=== PATIENT | female | born 1945 | race Caucasian/White ===

== ENCOUNTER 2021-06-25 14:52 | Inpatient (IN) ==
[2021-06-25] MEDS ORDERED: MORPHINE 2 MG/1 ML SYRINGE IV STA (16:27)
[2021-06-25] MEDS ORDERED: ASPIRIN 325 MG TABLET PO STA (16:27)
[2021-06-25] MEDS ORDERED: ONDANSETRON 4 MG/2 ML VIAL IV STA (16:27)
[2021-06-25] MEDS ORDERED: NITROGLYCERIN 2% OINT 1 INCH/GM PACK TOP STA (16:27)
[2021-06-25 16:40] LABS: Basophils % 0.6 % (0.0-0.8); Eosinophils # 0.1 10*3/uL (0.0-0.87); Eosinophils % 1.1 % (0.00-10.9); Hematocrit 46.4 VOL% (35.7-47.0); Hemoglobin 14.6 GM/DL (12.0-16.0); Immature Granulocytes % 0.2 %; Immature Granulocytes Absolute 0.01 #; Lymphocytes % 15.3 % (21.3-54.2); Mean Corpuscular HGB Conc 31.5 GM/DL (32-36); Mean Platelet Volume 10.4 FL (9.6-12.0); Monocytes % 5.3 % (1.7-12.7); Neutrophils % 77.5 % (38.7-73.9); Platelet Count 258 T/CUMM (130-400); Red Cell Distribution Width 13.2 % (9.3-17.3); White Blood Count 6.2 T/CUMM (4-12)
[2021-06-25 16:54] LABS: Alanine Aminotransferase 16 U/L (13-56); Albumin 3.6 G/DL (3.4-5.0); Alkaline Phosphatase 77 U/L (45-117); Aspartate Amino Transferase 20 U/L (0-37); Bilirubin,Total < 0.39 MG/DL (0.20-1.00); Blood Urea Nitrogen 17 MG/DL (7-18); Calcium 9.5 MG/DL (8.5-10.1); Carbon Dioxide 29 MMOL/L (21-32); Estimated Glom Filtration Rate 55 ML/MIN; Glucose 121 MG/DL (74-106); Potassium 4.5 MMOL/L (3.5-5.1); Sodium 136 MMOL/L (136-145)
[2021-06-25] MEDS ORDERED: ONDANSETRON 4 MG/2 ML VIAL IV PRN (17:47)
[2021-06-25] MEDS ORDERED: ZALEPLON 5 MG CAPSULE PO PRN (17:47)
[2021-06-25] MEDS ORDERED: DOCUSATE SODIUM 100 MG CAPSULE PO PRN (17:47)
[2021-06-25] MEDS ORDERED: NITROGLYCERIN 2% OINT 1 INCH/GM PACK TOP SCH (18:00)
[2021-06-25] MEDS ORDERED: ACETAMINOPHEN/CODEINE 300-30 MG TABLET PO PRN (18:41)
[2021-06-25] MEDS ORDERED: ENOXAPARIN 40 MG/0.4 ML SYRINGE SUBCUT SCH (20:00)
[2021-06-25] MEDS: ENOXAPARIN 80 MG/0.8 ML SYRINGE SUBCUT SCH (20:49)
[2021-06-25] MEDS: MORPHINE 2 MG/1 ML SYRINGE IV PRN (21:46)
[2021-06-26] MEDS: NITROGLYCERIN 2% OINT 1 INCH/GM PACK TOP SCH ×4 (00:31→17:22)
[2021-06-26] MEDS: ENOXAPARIN 80 MG/0.8 ML SYRINGE SUBCUT SCH ×2 (06:11→18:22)
[2021-06-26 06:12] LABS: Calcium 9.1 MG/DL (8.5-10.1); Osmolality,Calculated 276.7 MOS/KG (273-304); Potassium 4.2 MMOL/L (3.5-5.1); Risk Ratio 3.26; VLDL Cholesterol 25.4 MG/DL
[2021-06-26] MEDS ORDERED: MAGNESIUM SULF RIDER 2 GM/50 ML PREMIX IV ONE (07:51)
[2021-06-26] MEDS: PANTOPRAZOLE 40 MG TABLET PO SCH (08:23)
[2021-06-26] MEDS: MORPHINE 2 MG/1 ML SYRINGE IV PRN ×2 (08:26→13:25)
[2021-06-26] MEDS ORDERED: DIAZEPAM 5 MG TABLET PO ONE (09:47)
[2021-06-26] MEDS ORDERED: diphenhydrAMINE CAP 25 MG CAPSULE PO ONE (09:47)
[2021-06-26] MEDS: SODIUM CHLORIDE 0.45% 1,000 ML IV SCH ×2 (10:27→17:23)
[2021-06-26] MEDS: ASPIRIN EC 81 MG TABLET PO SCH (10:27)
[2021-06-26] MEDS ORDERED: LIDOCAINE 1% 20 ML VIAL ONE (10:51)
[2021-06-26] MEDS ORDERED: NITROGLYCERIN DRIP 50 MG/250 ML BOTTLE IV ONE (11:08)
[2021-06-26] MEDS ORDERED: VERAPAMIL 5 MG/2 ML VIAL ONE (11:08)
[2021-06-26] MEDS ORDERED: MIDAZOLAM 2 MG/2 ML VIAL ONE (11:29)
[2021-06-26] MEDS ORDERED: fentaNYL 100 MCG/2 ML VIAL ONE (11:29)
[2021-06-26] MEDS ORDERED: TIROFIBAN 5,000 MCG/100 ML PREMIX IV ONE (11:47)
[2021-06-26] MEDS ORDERED: TIROFIBAN 5,000 MCG/100 ML PREMIX IV SCH (11:53)
[2021-06-26] MEDS ORDERED: TICAGRELOR 90 MG TABLET ONE (12:22)
[2021-06-26] MEDS ORDERED: NITROGLYCERIN SL 0.4 MG TABLET SL PRN (12:29)
[2021-06-26] MEDS: TICAGRELOR 90 MG TABLET PO SCH (20:38)
[2021-06-26] MEDS ORDERED: ROSUVASTATIN 20 MG TABLET PO SCH (21:00)
[2021-06-27] MEDS: NITROGLYCERIN 2% OINT 1 INCH/GM PACK TOP SCH ×2 (00:21→05:16)
[2021-06-27 04:34] LABS: Basophils # 0.1 10*3/uL (0.0-0.2); Basophils % 0.9 % (0.0-0.8); Eosinophils # 0.3 10*3/uL (0.0-0.87); Eosinophils % 4.6 % (0.00-10.9); Hematocrit 41.8 VOL% (35.7-47.0); Hemoglobin 13.6 GM/DL (12.0-16.0); Immature Granulocytes % 0.2 %; Immature Granulocytes Absolute 0.01 #; Lymphocytes # 1.2 10*3/uL (1.4-4.0); Lymphocytes % 20.3 % (21.3-54.2); Mean Corpuscular HGB Conc 32.5 GM/DL (32-36); Mean Corpuscular Volume 88.6 FL (87-102); Mean Platelet Volume 9.8 FL (9.6-12.0); Monocytes % 8.8 % (1.7-12.7); Neutrophils % 65.2 % (38.7-73.9); Platelet Count 224 T/CUMM (130-400); Red Blood Count 4.72 MC/CUMM (3.8-5.5); Red Cell Distribution Width 13.4 % (9.3-17.3); White Blood Count 5.7 T/CUMM (4-12)
[2021-06-27] MEDS: SODIUM CHLORIDE 0.45% 1,000 ML IV SCH ×2 (04:39→09:59)
[2021-06-27 05:13] LABS: Calcium 8.7 MG/DL (8.5-10.1); Osmolality,Calculated 275.7 MOS/KG (273-304); Potassium 4.2 MMOL/L (3.5-5.1)
[2021-06-27 05:17] LABS: CKMB % 9.1 %
[2021-06-27] MEDS: ENOXAPARIN 80 MG/0.8 ML SYRINGE SUBCUT SCH (06:05)
[2021-06-27 08:08] VITALS: BP 137/90
[2021-06-27] MEDS: ASPIRIN EC 81 MG TABLET PO SCH (08:58)
[2021-06-27] MEDS: TICAGRELOR 90 MG TABLET PO SCH (08:58)
[2021-06-27] MEDS: PANTOPRAZOLE 40 MG TABLET PO SCH (08:58)
[2021-06-27] MEDS ORDERED: METOPROLOL SUCCINATE XL 25 MG TABLET PO SCH (09:00)
== END 2021-06-27 11:48 | disposition home or self-care (01) | DRG 247 ==
LOC: N.EDINP 14:52 → N.ED 14:52 → N.TELES 19:11 → SUATTDRO 06-26 14:08
PROVIDERS: ADMIT Internal Medicine; ATTEND Internal Medicine
PROC: CLCCHCL (ICD-10-PCS; 2021-06-26 11:45)

== ENCOUNTER 2021-07-04 04:07 | Inpatient (IN) ==
[~2021-07-04 04:07] MED LIST: MIDAZOLAM 2 MG/2 ML VIAL ONE
[2021-07-04] MEDS ORDERED: fentaNYL 100 MCG/2 ML VIAL ONE (04:14)
[2021-07-04] MEDS ORDERED: HEPARIN/NACL 0.9% 2 UNITS/ML 1,000 UNIT/500 ML BAG IV ONE (04:14)
[2021-07-04] MEDS ORDERED: HEPARIN 5,000 UNIT/1 ML VIAL ONE (04:15)
[2021-07-04] MEDS ORDERED: HEPARIN/NACL 0.9% 2 UNITS/ML 2,000 UNIT/1,000 ML BAG IV ONE (04:16)
[2021-07-04] MEDS ORDERED: EPTIFIBATIDE 75 MG/100 ML BOTTLE IV ONE (04:24)
[2021-07-04] MEDS ORDERED: EPTIFIBATIDE 20,000 MCG/10 ML VIAL ONE (04:24)
[2021-07-04] MEDS ORDERED: EPTIFIBATIDE 75 MG/100 ML BOTTLE IV SCH ×2 (04:28)
[2021-07-04] MEDS ORDERED: FUROSEMIDE 40 MG/4 ML VIAL ONE (04:48)
[2021-07-04 04:54] LABS: Basophils # 0.1 10*3/uL (0.0-0.2); Basophils % 0.6 % (0.0-0.8); Eosinophils # 0.3 10*3/uL (0.0-0.87); Eosinophils % 2.4 % (0.00-10.9); Hematocrit 37.5 VOL% (35.7-47.0); Immature Granulocytes % 0.5 %; Immature Granulocytes Absolute 0.05 #; Lymphocytes # 1.7 10*3/uL (1.4-4.0); Lymphocytes % 16.3 % (21.3-54.2); Mean Corpuscular Volume 89.1 FL (87-102); Mean Platelet Volume 10.1 FL (9.6-12.0); Monocytes % 3.8 % (1.7-12.7); Neutrophils % 76.4 % (38.7-73.9); Platelet Count 252 T/CUMM (130-400); Red Blood Count 4.21 MC/CUMM (3.8-5.5); Red Cell Distribution Width 13.7 % (9.3-17.3); White Blood Count 10.5 T/CUMM (4-12)
[2021-07-04] MEDS ORDERED: SODIUM CHLORIDE 0.9% 1,000 ML IV SCH (05:00)
[2021-07-04] MEDS ORDERED: NITROGLYCERIN SL 0.4 MG TABLET SL PRN (05:01)
[2021-07-04 05:12] LABS: Alanine Aminotransferase 18 U/L (13-56); Albumin 3.1 G/DL (3.4-5.0); Alkaline Phosphatase 56 U/L (45-117); Aspartate Amino Transferase 60 U/L (0-37); Bilirubin,Total < 0.39 MG/DL (0.20-1.00); Blood Urea Nitrogen 16 MG/DL (7-18); CKMB % 10.4 %; Calcium 8.2 MG/DL (8.5-10.1); Carbon Dioxide 22 MMOL/L (21-32); Glucose 137 MG/DL (74-106); Osmolality,Calculated 275.8 MOS/KG (273-304); Potassium 3.3 MMOL/L (3.5-5.1); Sodium 137 MMOL/L (136-145); Total Protein 6.5 G/DL (6.4-8.2)
[2021-07-04 05:13] LABS: Estimated Glom Filtration Rate 0 ML/MIN
[2021-07-04 05:19] LABS: Hypochromasia 1+; Microcytosis 1+
[2021-07-04 05:20] LABS: Ovalocytes Slight; Platelet Estimate Normal
[2021-07-04 05:28] LABS: INR 1.1; PT Patient Result 12.1 SECS (10.5-12.0)
[2021-07-04 05:37] LABS: Partial Thromboplastin Time > 211.8 SECS (23.9-33.8)
[2021-07-04 06:30] LABS: Calcium 9.1 MG/DL (8.5-10.1); Osmolality,Calculated 276.7 MOS/KG (273-304); Potassium 3.7 MMOL/L (3.5-5.1)
[2021-07-04 06:34] LABS: Risk Ratio 2.5; VLDL Cholesterol 12.4 MG/DL
[2021-07-04] MEDS: ASPIRIN EC 81 MG TABLET PO SCH (08:12)
[2021-07-04] MEDS: TICAGRELOR 90 MG TABLET PO SCH ×2 (08:13→20:11)
[2021-07-04] MEDS: POTASSIUM CHLORIDE 20 MEQ TABLET PO SCH (08:37)
[2021-07-04] MEDS ORDERED: TICAGRELOR 90 MG TABLET PO SCH (09:00)
[2021-07-04] MEDS ORDERED: ASPIRIN EC 81 MG TABLET PO SCH (09:00)
[2021-07-04] MEDS: ROSUVASTATIN 20 MG TABLET PO SCH (20:58)
[2021-07-04] MEDS: ACETAMINOPHEN 325 MG TABLET PO PRN (21:43)
[2021-07-05] MEDS: ACETAMINOPHEN 325 MG TABLET PO PRN ×2 (03:42→15:05)
[2021-07-05] MEDS: MORPHINE 2 MG/1 ML SYRINGE IV PRN ×4 (05:49→22:41)
[2021-07-05 06:33] LABS: Basophils # 0.1 10*3/uL (0.0-0.2); Basophils % 0.8 % (0.0-0.8); Eosinophils # 0.2 10*3/uL (0.0-0.87); Hematocrit 44.3 VOL% (35.7-47.0); Hemoglobin 14.4 GM/DL (12.0-16.0); Immature Granulocytes % 0.4 %; Immature Granulocytes Absolute 0.03 #; Lymphocytes # 1.8 10*3/uL (1.4-4.0); Mean Corpuscular HGB Conc 32.5 GM/DL (32-36); Mean Corpuscular Volume 87.4 FL (87-102); Mean Platelet Volume 10.6 FL (9.6-12.0); Monocytes % 7.2 % (1.7-12.7); Neutrophils % 63.6 % (38.7-73.9); Red Cell Distribution Width 13.7 % (9.3-17.3)
[2021-07-05 06:46] LABS: White Blood Count 7.1 T/CUMM (4-12)
[2021-07-05 06:47] LABS: Platelet Count 305 T/CUMM (130-400); Red Blood Count 5.07 MC/CUMM (3.8-5.5)
[2021-07-05] MEDS: ASPIRIN EC 81 MG TABLET PO SCH (09:32)
[2021-07-05] MEDS: POTASSIUM CHLORIDE 20 MEQ TABLET PO SCH (09:32)
[2021-07-05] MEDS: FUROSEMIDE 40 MG/4 ML VIAL IV SCH (09:33)
[2021-07-05] MEDS: TICAGRELOR 90 MG TABLET PO SCH ×2 (09:33→21:51)
[2021-07-05] MEDS: ROSUVASTATIN 20 MG TABLET PO SCH (21:51)
[2021-07-06] MEDS: ASPIRIN EC 81 MG TABLET PO SCH (08:27)
[2021-07-06] MEDS: TICAGRELOR 90 MG TABLET PO SCH ×2 (08:27→21:10)
[2021-07-06] MEDS: POTASSIUM CHLORIDE 20 MEQ TABLET PO SCH (08:27)
[2021-07-06] MEDS: FUROSEMIDE 40 MG/4 ML VIAL IV SCH (08:27)
[2021-07-06] MEDS: ACETAMINOPHEN 325 MG TABLET PO PRN (08:28)
[2021-07-06] MEDS: carvediloL 3.125 MG TABLET PO SCH (16:19)
[2021-07-06] MEDS: ROSUVASTATIN 20 MG TABLET PO SCH (21:10)
[2021-07-07] MEDS: ACETAMINOPHEN 325 MG TABLET PO PRN ×2 (00:07→09:11)
[2021-07-07 06:42] LABS: Basophils # 0.1 10*3/uL (0.0-0.2); Basophils % 0.7 % (0.0-0.8); Eosinophils # 0.4 10*3/uL (0.0-0.87); Eosinophils % 5.4 % (0.00-10.9); Hematocrit 43.8 VOL% (35.7-47.0); Hemoglobin 14.2 GM/DL (12.0-16.0); Immature Granulocytes % 0.1 %; Immature Granulocytes Absolute 0.01 #; Lymphocytes % 29.2 % (21.3-54.2); Mean Corpuscular HGB Conc 32.4 GM/DL (32-36); Mean Platelet Volume 10.3 FL (9.6-12.0); Monocytes % 9.1 % (1.7-12.7); Neutrophils % 55.5 % (38.7-73.9); Platelet Count 310 T/CUMM (130-400); Red Blood Count 4.98 MC/CUMM (3.8-5.5); Red Cell Distribution Width 13.9 % (9.3-17.3); White Blood Count 6.7 T/CUMM (4-12)
[2021-07-07 07:09] LABS: Calcium 9.1 MG/DL (8.5-10.1); Osmolality,Calculated 275.7 MOS/KG (273-304); Potassium 4.2 MMOL/L (3.5-5.1)
[2021-07-07] MEDS ORDERED: FUROSEMIDE 40 MG TABLET PO SCH (09:00)
[2021-07-07] MEDS: TICAGRELOR 90 MG TABLET PO SCH (09:09)
[2021-07-07] MEDS: carvediloL 3.125 MG TABLET PO SCH (09:09)
[2021-07-07] MEDS: ASPIRIN EC 81 MG TABLET PO SCH (09:10)
[2021-07-07] MEDS: POTASSIUM CHLORIDE 20 MEQ TABLET PO SCH (09:10)
[2021-07-07 11:53] VITALS: BP 116/56
[2021-07-08] MEDS ORDERED: METOPROLOL SUCCINATE XL 25 MG TABLET PO SCH (09:00)
[2021-07-08] MEDS ORDERED: SPIRONOLACTONE 25 MG TABLET PO SCH (09:00)
== END 2021-07-07 13:03 | disposition home or self-care (01) | DRG 246 ==
LOC: N.CL 04:07 → N.ICU 05:25 → N.TELES 07-05 04:45
PROVIDERS: ADMIT Internal Medicine Cardiovascular Disease; ATTEND Internal Medicine Cardiovascular Disease
PROC: CLCCHCL (ICD-10-PCS; 2021-07-04 04:00)

== ENCOUNTER 2021-08-30 20:38 | Inpatient (IN) ==
[2021-08-30] MEDS ORDERED: MORPHINE 2 MG/1 ML SYRINGE IV STA (21:52)
[2021-08-30] MEDS ORDERED: SODIUM CHLORIDE 0.9% 500 ML IV STA (21:52)
[2021-08-30] MEDS ORDERED: ONDANSETRON 4 MG/2 ML VIAL IV ONE (21:54)
[2021-08-30 22:29] LABS: Basophils # 0.1 10*3/uL (0.0-0.2); Basophils % 0.4 % (0.0-0.8); Eosinophils # 0.1 10*3/uL (0.0-0.87); Eosinophils % 0.6 % (0.00-10.9); Hematocrit 47.3 VOL% (35.7-47.0); Hemoglobin 15.1 GM/DL (12.0-16.0); Immature Granulocytes % 0.4 %; Immature Granulocytes Absolute 0.07 #; Lymphocytes # 1.1 10*3/uL (1.4-4.0); Lymphocytes % 6.7 % (21.3-54.2); Mean Corpuscular HGB Conc 31.9 GM/DL (32-36); Mean Corpuscular Volume 88.6 FL (87-102); Mean Platelet Volume 9.5 FL (9.6-12.0); Monocytes % 4.4 % (1.7-12.7); Neutrophils % 87.5 % (38.7-73.9); Platelet Count 363 T/CUMM (130-400); Red Blood Count 5.34 MC/CUMM (3.8-5.5); Red Cell Distribution Width 14.7 % (9.3-17.3)
[2021-08-30 22:49] LABS: Albumin 3.5 G/DL (3.4-5.0); Bilirubin,Total 0.7 MG/DL (0.20-1.00); Calcium 9.6 MG/DL (8.5-10.1); Potassium 3.6 MMOL/L (3.5-5.1); Total Protein 8.1 G/DL (6.4-8.2)
[2021-08-30] MEDS ORDERED: cefTRIAXone 1,000 MG in SODIUM CHLORIDE 0.9% 100 ML IV STA (22:58)
[2021-08-31] MEDS ORDERED: DEXTROSE 50% 25 GM/50 ML VIAL IV PRN (00:11)
[2021-08-31] MEDS ORDERED: GLUCAGON 1 MG VIAL IM PRN (00:11)
[2021-08-31] MEDS ORDERED: NITROGLYCERIN SL 0.4 MG TABLET SL PRN (00:17)
[2021-08-31 00:37] LABS: Bacteria,Urine Many /HPF (Few); Bilirubin,Urine Negative (Negative); Blood, Urine Negative (Negative); Glucose,Urine (UA) Negative (Negative); Hyaline Casts,Urine 22 /LPF (0-3); Ketones,Urine Negative (Negative); Mucus,Urine Few /LPF (Occasional); Nitrite,Urine Negative (Negative); Protein,Urine Negative; Squamous Epithelial Cell,Urine Occasional /HPF (0-10); Urine Appearance CLOUDY (Clear); Urine Color Amber (Yellow); Urine Urobilinogen < 2.0 EU/DL (0.2-1.0)
[2021-08-31] MEDS: MORPHINE 2 MG/1 ML SYRINGE IV PRN ×2 (00:51→08:26)
[2021-08-31] MEDS ORDERED: metroNIDAZOLE INJ 500 MG/100 ML PREMIX IV SCH (08:00)
[2021-08-31 08:25] LABS: Basophils # 0.1 10*3/uL (0.0-0.2); Basophils % 0.5 % (0.0-0.8); Eosinophils # 0.3 10*3/uL (0.0-0.87); Hematocrit 40.3 VOL% (35.7-47.0); Hemoglobin 13.2 GM/DL (12.0-16.0); Immature Granulocytes % 0.3 %; Immature Granulocytes Absolute 0.04 #; Lymphocytes # 1.9 10*3/uL (1.4-4.0); Lymphocytes % 14.5 % (21.3-54.2); Mean Corpuscular HGB Conc 32.8 GM/DL (32-36); Mean Corpuscular Volume 89.2 FL (87-102); Mean Platelet Volume 9.8 FL (9.6-12.0); Monocytes % 5.2 % (1.7-12.7); Neutrophils % 77.5 % (38.7-73.9); Platelet Count 306 T/CUMM (130-400); Red Blood Count 4.52 MC/CUMM (3.8-5.5); Red Cell Distribution Width 14.8 % (9.3-17.3); White Blood Count 12.8 T/CUMM (4-12)
[2021-08-31] MEDS: SPIRONOLACTONE 25 MG TABLET PO SCH (08:25)
[2021-08-31] MEDS: LEVOTHYROXINE 125 MCG TABLET PO SCH (08:25)
[2021-08-31] MEDS: ASPIRIN EC 81 MG TABLET PO SCH (08:25)
[2021-08-31] MEDS: METOPROLOL SUCCINATE XL 25 MG TABLET PO SCH (08:25)
[2021-08-31] MEDS: PANTOPRAZOLE 40 MG TABLET PO SCH (08:25)
[2021-08-31] MEDS: TICAGRELOR 90 MG TABLET PO SCH ×2 (08:29→22:40)
[2021-08-31] MEDS: ENOXAPARIN 40 MG/0.4 ML SYRINGE SUBCUT SCH (08:32)
[2021-08-31 08:44] LABS: Albumin 2.8 G/DL (3.4-5.0); Bilirubin,Total 0.4 MG/DL (0.20-1.00); Calcium 8.6 MG/DL (8.5-10.1); Osmolality,Calculated 267.2 MOS/KG (273-304); Potassium 3.8 MMOL/L (3.5-5.1); Total Protein 6.7 G/DL (6.4-8.2)
[2021-08-31] MEDS ORDERED: LOSARTAN 25 MG TABLET PO SCH (09:00)
[2021-08-31] MEDS: CIPROFLOXACIN INJ 400 MG/200 ML PREMIX IV SCH (10:06)
[2021-08-31] MEDS: metroNIDAZOLE INJ 500 MG/100 ML PREMIX IV SCH (16:36)
[2021-08-31] MEDS ORDERED: SODIUM CHLORIDE 0.9% 500 ML IV ONE (21:52)
[2021-08-31] MEDS: AMITRIPTYLINE 50 MG TABLET PO SCH (22:40)
[2021-08-31] MEDS: ROSUVASTATIN 20 MG TABLET PO SCH (22:40)
[2021-08-31] MEDS: SODIUM CHLORIDE 0.9% 1,000 ML IV SCH (23:50)
[2021-09-01] MEDS: CIPROFLOXACIN INJ 400 MG/200 ML PREMIX IV SCH ×3 (01:05→22:42)
[2021-09-01] MEDS: ONDANSETRON 4 MG/2 ML VIAL IV PRN (02:13)
[2021-09-01] MEDS: MORPHINE 2 MG/1 ML SYRINGE IV PRN ×2 (02:14→18:19)
[2021-09-01] MEDS: metroNIDAZOLE INJ 500 MG/100 ML PREMIX IV SCH ×3 (05:38→17:47)
[2021-09-01 05:41] LABS: Basophils % 0.3 % (0.0-0.8); Eosinophils # 0.4 10*3/uL (0.0-0.87); Eosinophils % 4.1 % (0.00-10.9); Hemoglobin 11.8 GM/DL (12.0-16.0); Immature Granulocytes % 0.3 %; Immature Granulocytes Absolute 0.03 #; Lymphocytes # 1.4 10*3/uL (1.4-4.0); Lymphocytes % 16.3 % (21.3-54.2); Mean Corpuscular HGB Conc 31.9 GM/DL (32-36); Mean Platelet Volume 9.7 FL (9.6-12.0); Monocytes % 6.6 % (1.7-12.7); Neutrophils % 72.4 % (38.7-73.9); Platelet Count 260 T/CUMM (130-400); Red Blood Count 4.11 MC/CUMM (3.8-5.5); Red Cell Distribution Width 14.6 % (9.3-17.3); White Blood Count 8.7 T/CUMM (4-12)
[2021-09-01 05:55] LABS: Calcium 8.2 MG/DL (8.5-10.1); Osmolality,Calculated 274.7 MOS/KG (273-304); Potassium 3.9 MMOL/L (3.5-5.1)
[2021-09-01 06:01] LABS: Calcium 8.3 MG/DL (8.5-10.1); Osmolality,Calculated 274.7 MOS/KG (273-304)
[2021-09-01] MEDS: SPIRONOLACTONE 25 MG TABLET PO SCH (09:04)
[2021-09-01] MEDS: ENOXAPARIN 40 MG/0.4 ML SYRINGE SUBCUT SCH (09:04)
[2021-09-01] MEDS: METOPROLOL SUCCINATE XL 25 MG TABLET PO SCH (09:04)
[2021-09-01] MEDS: LEVOTHYROXINE 125 MCG TABLET PO SCH (09:05)
[2021-09-01] MEDS: ASPIRIN EC 81 MG TABLET PO SCH (09:05)
[2021-09-01] MEDS: TICAGRELOR 90 MG TABLET PO SCH ×2 (09:05→22:31)
[2021-09-01] MEDS: PANTOPRAZOLE 40 MG TABLET PO SCH (09:08)
[2021-09-01] MEDS: SODIUM CHLORIDE 0.9% 1,000 ML IV SCH ×2 (10:30→21:08)
[2021-09-01] MEDS: AMITRIPTYLINE 50 MG TABLET PO SCH (22:31)
[2021-09-01] MEDS: ROSUVASTATIN 20 MG TABLET PO SCH (22:31)
[2021-09-02] MEDS: metroNIDAZOLE INJ 500 MG/100 ML PREMIX IV SCH ×2 (01:37→10:40)
[2021-09-02] MEDS: ONDANSETRON 4 MG/2 ML VIAL IV PRN (05:21)
[2021-09-02 05:24] LABS: Basophils % 0.4 % (0.0-0.8); Eosinophils # 0.4 10*3/uL (0.0-0.87); Eosinophils % 5.2 % (0.00-10.9); Hematocrit 34.9 VOL% (35.7-47.0); Immature Granulocytes % 0.3 %; Immature Granulocytes Absolute 0.02 #; Lymphocytes # 1.3 10*3/uL (1.4-4.0); Lymphocytes % 18.7 % (21.3-54.2); Mean Corpuscular HGB Conc 31.5 GM/DL (32-36); Mean Corpuscular Volume 91.1 FL (87-102); Mean Platelet Volume 9.9 FL (9.6-12.0); Monocytes % 6.6 % (1.7-12.7); Neutrophils % 68.8 % (38.7-73.9); Platelet Count 249 T/CUMM (130-400); Red Blood Count 3.83 MC/CUMM (3.8-5.5); Red Cell Distribution Width 14.6 % (9.3-17.3); White Blood Count 7.2 T/CUMM (4-12)
[2021-09-02 05:34] LABS: Calcium 8.3 MG/DL (8.5-10.1); Osmolality,Calculated 274.7 MOS/KG (273-304); Potassium 4.1 MMOL/L (3.5-5.1)
[2021-09-02] MEDS: MORPHINE 2 MG/1 ML SYRINGE IV PRN (07:49)
[2021-09-02] MEDS: PANTOPRAZOLE 40 MG TABLET PO SCH (09:50)
[2021-09-02] MEDS: ASPIRIN EC 81 MG TABLET PO SCH (09:50)
[2021-09-02] MEDS: TICAGRELOR 90 MG TABLET PO SCH (09:50)
[2021-09-02] MEDS: ENOXAPARIN 40 MG/0.4 ML SYRINGE SUBCUT SCH (09:50)
[2021-09-02] MEDS: METOPROLOL SUCCINATE XL 25 MG TABLET PO SCH (09:50)
[2021-09-02] MEDS: SPIRONOLACTONE 25 MG TABLET PO SCH (09:50)
[2021-09-02] MEDS: LEVOTHYROXINE 125 MCG TABLET PO SCH (09:50)
[2021-09-02] MEDS: CIPROFLOXACIN INJ 400 MG/200 ML PREMIX IV SCH (10:40)
[2021-09-02] MEDS ORDERED: CIPROFLOXACIN 500 MG TABLET PO SCH (11:00)
[2021-09-02] MEDS: metroNIDAZOLE 500 MG TABLET PO SCH ×2 (11:10→14:56)
[2021-09-02 15:38] VITALS: BP 105/82
== END 2021-09-02 16:46 | disposition home or self-care (01) | DRG 872 ==
LOC: N.ED 20:38 → SUATTDRO 08-31 00:11 → N.EDINP 08-31 00:11 → N.5E 08-31 02:25 → N.EDINP 08-31 02:30
PROVIDERS: ADMIT Internal Medicine; ATTEND Internal Medicine